=== PATIENT | male | born 1985 | race Caucasian/White ===

== ENCOUNTER 2025-01-06 22:14 | Emergency (ER) | payer OTHER ==
[~2025-01-06] VITALS: Ht 188 cm; Wt 127.0 kg
[2025-01-06] MEDS ORDERED: ONDANSETRON HCL/PF 4 MG/2 ML VIAL ONE (22:54)
[2025-01-06] MEDS ORDERED: TAMSULOSIN 0.4 MG CAP.SR.24H ONE (22:54)
[2025-01-06] MEDS ORDERED: KETOROLAC TROMETHAMINE 15 MG/ML VIAL ONE (22:54)
[2025-01-06] MEDS: IV NS 0.9% 1,000 ML BAG IV ONE (23:06)
[2025-01-06] MEDS: ONDANSETRON HCL/PF 4 MG/2 ML VIAL IVP ONE (23:07)
[2025-01-06] MEDS: KETOROLAC TROMETHAMINE 15 MG/ML VIAL IV ONE (23:07)
[2025-01-06] MEDS: TAMSULOSIN 0.4 MG CAP.SR.24H PO ONE (23:12)
[2025-01-06] MEDS ORDERED: MORPHINE SULFATE INJ 4 MG/ML DISP.SYRIN ONE (23:26)
[2025-01-06] MEDS: MORPHINE SULFATE INJ 2 MG/ML DISP.SYRIN IV ONE (23:29)
[2025-01-06 23:31] LABS: BASOPHILS % (AUTO) 0.3 % (0.0-2.0); EOSINOPHILS % (AUTO) 0.6 % (0.0-6.0); HEMATOCRIT 46 % (39-51); HEMOGLOBIN 15.6 g/dL (13.5-17.5); LYMPHOCYTES # (AUTO) 1.6 K/uL (0.8-4.8); LYMPHOCYTES % (AUTO) 19.2 % (20.0-44.0); MEAN CORPUSCULAR HEMOGLOBIN 31 PG (26.0-33.0); MEAN CORPUSCULAR HGB CONC 34 g/dl (31.0-36.0); MEAN CORPUSCULAR VOLUME 90 fL (80-96); MONOCYTES # (AUTO) 0.8 K/uL (0.1-1.30); MONOCYTES % (AUTO) 8.8 % (2.0-12.0); NEUTROPHILS # (AUTO) 6.1 K/uL (1.8-8.9); NEUTROPHILS % (AUTO) 71.1 % (43.0-81.0); PLATELET COUNT (AUTO) 194 K/uL (150-450); RED BLOOD CELL COUNT(AUTO) 5.07 MIL/uL (4.5-6.0); RED CELL DISTRIBUTION WIDTH 13.9 % (11.5-15.0); WHITE BLOOD COUNT (AUTO) 8.5 K/uL (4.3-11.0)
[2025-01-06 23:44] LABS: APPEARANCE,URINE CLEAR (CLEAR); BILIRUBIN,URINE NEGATIVE (NEGATIVE); BLOOD, URINE 3+ Ery/uL (NEGATIVE); COLOR,URINE YELLOW (YELLOW); KETONES,URINE 2+ mg/dL (NEGATIVE); LEUKOCYTE ESTERASE ,URINE NEGATIVE (NEGATIVE); NITRITE, URINE NEGATIVE (NEGATIVE); PROTEIN,URINE NEGATIVE (NEGATIVE); UGLUCOSE NEGATIVE (NEGATIVE); UROBILINOGEN,URINE 0.2 EU/dL (0.2)
[2025-01-06 23:58] LABS: CALCIUM, SERUM 10.1 mg/dL (8.5-10.1); CREATININE 1.1 mg/dL (0.6-1.3); POTASSIUM 3.7 mmol/L (3.5-5.1)
[2025-01-07 00:03] LABS: ALBUMIN 4.7 g/dL (3.4-5.0); BILIRUBIN,DIRECT 0.2 mg/dL (0.0-0.2); BILIRUBIN,TOTAL 0.7 mg/dL (0.2-1.0); TOTAL PROTEIN, SERUM 8.2 g/dL (6.4-8.2)
[2025-01-07 00:47] LABS: RBC,URINE 21-50 /HPF (0-2)
[2025-01-07 00:51] LABS: ADD URINE CULTURE YES; BACTERIA,URINE Moderate /HPF (None Seen); SQUAMOUS EPITHELIAL CELL,UR Few /HPF (None Seen)
[2025-01-07] MEDS ORDERED: ONDA4TAB11 PO (01:43)
[2025-01-07] MEDS ORDERED: HYDR-3980 PO (01:43)
[2025-01-07 02:05] VITALS: BP 137/81; TEMP 98.9; O2SAT 99
== END 2025-01-07 02:06 | disposition home or self-care (01) ==
LOC: ER 22:17
DX: N20.0 Calculus of kidney (principal); F17.200 Nicotine dependence, unspecified, uncomplicated; Z60.2 Problems related to living alone
CPT/HCPCS: 99285; 96374; 96375; 96361; 85025; 80048; 83690; 80076; 81001; 36415; 74176; J1885; J2270; J2405; 87086-TC